=== PATIENT | female | born 1990 | race Caucasian/White ===

== ENCOUNTER 2020-02-18 13:13 | Outpatient (CLI) | payer OTHER, SELFPAY ==
--- NOTE | ~2020-02-18 | XR_ITS ---
XR ankle LT 2V DATE: 02/18/2020 13:40 INDICATION: Lateral ankle pain. No injury. TECHNIQUE: 2 views COMPARISON: None FINDINGS: There is mild soft tissue swelling of the ankle laterally. No fracture or dislocation of the ankle or disruption of the ankle mortise. No periosteal reaction or bone destruction. IMPRESSION: Mild lateral soft tissue swelling Reviewed, dictated and finalized at location A.
== END 2020-02-18 13:14 | disposition home or self-care (01) ==
LOC: ANHIMG 13:21
PROVIDERS: PCP Family Medicine; Visit Provider Physician Assistant
DX: M25.579 Pain in unspecified ankle and joints of unspecified foot (principal); M79.89 Other specified soft tissue disorders
CPT/HCPCS: 73600

== ENCOUNTER 2021-08-14 09:39 | Outpatient (CLI) | payer OTHER, SELFPAY ==
--- NOTE | ~2021-08-14 | US_ITS ---
EXAMINATION: US OB BPP wo non-stress EXAM DATE: 08/14/2021 14:13 INDICATION: Variable decelerations on FHR tracing man. 3rd trimester. TECHNIQUE: Pelvic obstetrical transabdominal sonogram was performed by a technologist. There are mu ltiple grayscale and Doppler images available for interpretation. There are no earlier studies of th is gestation for comparison. FINDINGS: There is a single fetus identified in breech presentation with a heart rate of 130 beats pe r minute. The placenta is located in the likely fundal position. There is no sonographic evidence of retroplacental hemorrhage identified. BIOPHYSICAL PROFILE (performed by the technologist) breathing (30 sec sustained breathing in 30 minutes): 6 out of 2 movement (3 gross body movements in 30 minutes): 2 out of 2 tone (one episode of istekdb-pokuarhlx-sytlzbm limb movement): 2 out of 2 Amniotic fluid pocket (2 cm): 2 out of 2 Total score: 6 out of 8 IMPRESSION: 1. Single fetus with heart rate of 130 bpm. 2. Normal biophysical profile score of 8 out of 8. Reviewed, dictated and finalized at location B.
[2021-08-14 10:24] VITALS: BP 121/75; PULSE 84
--- NOTE | 2021-08-14 10:43 | PM.IMHP ---
H&P: HPI History of Present Illness Date/Time: 08/14/21 10:43 Chief Complaint: Breech presentation intrauterine at term Narrative: 31 yo at 37w6d who presents for ECV for breech presentation. Pt was complicated by IUGR. Pt has been getting screening and getting serial growth scans. Last scan showed EFW of 25%. Pt denies any contractions, vaginal bleeding, leakage of fluid. Review of Systems Review of Systems: All systems reviewed & are unremarkable except as noted in HPI and below PMFSH Past Medical History Medical History (Updated 08/14/21 @ 10:51 by Cezar Spears MD) Migraine Family History Family History (Reviewed 11/12/20 @ 09:15 by Jesenia Sun [facility]) Unknown No problems noted. Social History Social History (Updated 11/12/20 @ 09:16 by Jesenia Sun [facility]) Smoking status: Never smoker Second hand tobacco smoke exposure: No Alcohol intake: never Substance use: never Substance use type: does not use Meds Home Medications and Allergies Home Medications Medication Instructions Recorded Confirmed Type prenat.vits,joselyn,[id number] 1 tablet PO DAILY 11/12/20 11/12/20 History Allergies Allergy/AdvReac Type Severity Reaction Status Date / Time No Known Allergies Allergy Verified 11/12/20 09:13 Vital Signs Vital Signs - 24 hr 08/14/21 10:24 Pulse Rate 84 Blood Pressure 121/75 Exam Const: General: cooperative Resp: Effort & Inspection: normal respiratory effort and able to speak in complete sentences Cardio: Rate: regular rate Rhythm: regular rhythm GI: Inspection: other (Gravid) GI Palp: No Tenderness to palpation present (GI) Assessment and Plan Assessment and plan (1) Supervision of high risk , unspecified, third trimester: Code(s): O09.93 - Supervision of high risk , unspecified, third trimester Status: Acute (2) Breech presentation: Code(s): O32.1XX0 - Maternal care for breech presentation, not applicable or unspecified Status: Acute Assessment and Plan: Pt has been breech for several weeks discussed ECV with patient risks, benefits, alternatives discussed BSUS performed, confirmed breech presentation fetus is breech with back to the maternal left. Will plan for forward roll in the counter-clockwise directions. Anterior placenta noted. No signs of nuchal cord noted. Amniotic fluid normal. will plan for fentanyl for pain control will dose terbutaline prior to ECV pt to have NST and extended monitoring after
[2021-08-14 10:59] VITALS: BP 115/71; PULSE 84
[2021-08-14] MEDS: TERBUTALINE SULFATE 1 MG/ML VIAL 0.25 MG SUB-Q (11:06)
[2021-08-14] MEDS: fentaNYL CITRATE INJ (*CRX) 100 MCG/2 ML VIAL 50 MCG IV PUSH (11:08)
--- NOTE | 2021-08-14 11:31 | P.OP_ITS ---
Procedure Note - Detailed Date of Procedure 08/14/21 Pre-op Diagnosis Breech presentation intrauterine at term Post-op Diagnosis Same Procedure Performed attempted ECV Surgeon Cezar Spears MD Anesthesia Other (IV fentanyl) Indications Breech presentation Findings BSUS confirmed breech presentation. spine to maternal left. Description of Procedure Bedside US was performed to confirm breech presentation. US showed fetus in breech presentation with spine to maternal left. Anterior placenta. Amniotic fluid within normal limits. NST reactive prior to going to OR. Pt was given one dose of terbutaline and IV fentanyl. BS US was repeated prior to attempting ECV. Suprapubic pressure was applied to displace the buttock from the pelvis. Pressure was then applied to the head in a counter- clockwise direction to facilitate a forward roll. The head was not able to be moved. US was repeated multiple times throughout the attempt to check FHT. FHT remained reassuring throughout the procedure. Multiple attempts were made at a forward roll without success. Attempt was then made to apply pressure to the head in a clockwise direction to attempt a backward roll. Again, the fetus was unable to be rotated. Pt reported a 7/10 for pain during the procedure. After several attempts, it was determined the ECV was unsuccessful. FHT were placed back on the monitor and noted to be reassuring. Estimated Blood Loss 0 Drains No Packing No Pathology None sent Complications No immediate complications Condition Stable Disposition Floor
[2021-08-14 11:34] LABS: HIV 1/2 Ab P24 Ag Result Negative (Negative)
== END 2021-08-14 14:35 | disposition home or self-care (01) ==
LOC: ANHOBOP 09:48 → ANHOBPP 09:48
PROVIDERS: PCP Family Medicine; Visit Provider Student in an Organized Health Care Education/Training Program
DX: O32.1XX0 Maternal care for breech presentation, not applicable or unspecified (principal); O09.93 Supervision of high risk pregnancy, unspecified, third trimester; Z3A.00 Weeks of gestation of pregnancy not specified
CPT/HCPCS: 36415; 59412; 76819; 86703; 96372; 96374; 99199; G0432; J3010; J3105

== ENCOUNTER 2021-08-17 17:21 | Outpatient (RCR) | payer OTHER, SELFPAY ==
[2021-08-17 17:53] VITALS: BP 114/63
== END 2021-09-21 08:17 | disposition home or self-care (01) ==
LOC: ANHOBOP 17:21
PROVIDERS: PCP Family Medicine; Visit Provider Student in an Organized Health Care Education/Training Program
DX: O36.8190 Decreased fetal movements, unspecified trimester, not applicable or unspecified (principal); Z3A.00 Weeks of gestation of pregnancy not specified
CPT/HCPCS: 59025

== ENCOUNTER 2021-08-22 10:11 | Outpatient (CLI) | payer OTHER, SELFPAY ==
[2021-08-22 11:02] LABS: Hematocrit 37.5 % (37.0-47.0); Hemoglobin 12.5 g/dL (12.0-15.0); Mean Corpuscular HGB Conc 33.3 g/dl (32-36); Mean Corpuscular Volume 95.9 fl (80-100); Mean Platelet Volume 10.2 fl (7.4-10.4); Platelet Count Result 296 k/mm3 (150-375); Red Blood Count 3.91 M/mm3 (4.2-5.4); Red Cell Distribution Width 14.1 % (11.5-14.5); White Blood Count 11.7 K/mm3 (4.5-10.0)
[2021-08-24 07:50] LABS: Rapid Plasma Reagin Non-Reactive (NonReactive)
== END 2021-08-22 10:12 | disposition home or self-care (01) ==
LOC: ANHLAB 10:13
PROVIDERS: PCP Family Medicine; Visit Provider Student in an Organized Health Care Education/Training Program
DX: Z34.93 Encounter for supervision of normal pregnancy, unspecified, third trimester (principal); Z3A.00 Weeks of gestation of pregnancy not specified
CPT/HCPCS: 36415; 85027; 86592; 86850; 86900; 86901

== ENCOUNTER 2021-08-24 06:39 | Inpatient (IN) | payer OTHER, SELFPAY ==
[2021-08-24] VITALS (60 sets, daily range): BP systolic 83–131; BP diastolic 46–112; PULSE 27–83; RESP 13–18; TEMP 35.7–36.9; O2SAT 83–100; BMI 30.4
[2021-08-24] MEDS: LACTATED RINGERS 1,000 ML 125 ML IV CONT (07:20)
--- NOTE | 2021-08-24 07:45 | PM.IMHP ---
H&P: HPI History of Present Illness Date/Time: 08/24/21 07:45 Chief Complaint: Intrauterine at term breech presentation Narrative: 31 yo G1 at 39w2d who presents for primary delivery for breech presentation. Fetus has been in breech presentation since June. ECV was attempted and was unsuccessful. Pt was complicated by IUGR which had resolved at last growth scan. Review of Systems Cardiovascular: Cardiovascular: Denies chest pain, Denies leg edema, Denies palpitations, Denies dyspnea and Denies dyspnea on exertion Respiratory: Respiratory: Denies cough, Denies dyspnea and Denies dyspnea on exertion Gastrointestinal: Gastrointestinal: Denies abdominal pain, Denies constipation, Denies diarrhea, Denies nausea and Denies vomiting Genitourinary: Genitourinary: Denies hematuria, Denies urinary frequency, Denies dysuria, Denies pelvic pain, Denies urinary incontinence and Denies vaginal discharge Neurologic: Reports system reviewed and no additional complaints, except as documented Psychiatric: Psychiatric: Reports no additional psychiatric complaints Endocrine: Endocrine: Denies palpitations PMFSH Past Medical History Medical History (Updated 08/14/21 @ 10:51 by Cezar Spears MD) Migraine Family History Family History (Updated 08/15/21 @ 15:22 by Rebecca Starkey RN) Unknown No problems noted. Other No pertinent family history Social History Social History (Updated 11/12/20 @ 09:16 by Jesenia Sun CMA) Smoking status: Never smoker Second hand tobacco smoke exposure: No Alcohol intake: never Substance use: never Substance use type: does not use Spiritual care concerns: No Meds Home Medications and Allergies Home Medications Medication Instructions Recorded Confirmed Type prenat.vits,joselyn,vcd-ncmz-syoeq 1 tablet PO DAILY 11/12/20 08/24/21 History aspirin 81 mg PO DAILY 08/14/21 08/24/21 History calcium carbonate-vitamin D3 1 tablet PO DAILY 08/14/21 08/24/21 History [Calcium + D] omega-3 fatty acids [Fish Oil] 1,500 mg PO DAILY 08/14/21 08/24/21 History Allergies Allergy/AdvReac Type Severity Reaction Status Date / Time No Known Allergies Allergy Verified 11/12/20 09:13 Vital Signs Vital Signs - 24 hr 08/24/21 07:34 08/24/21 07:45 Pulse Rate 78 74 Blood Pressure 107/67 105/72 Exam Const: General: no acute distress Eyes: EOM: EOMs intact bilaterally Neck: Neck: supple Thyroid: thyroid normal Chest: Breast/axilla inspection: normal inspection of the breasts Breast/axilla palpation: normal palpation of the breasts, normal palpation of the axillae and no axillary lymphadenopathy Resp: Effort & Inspection: normal respiratory effort Auscultation: clear to auscultation bilaterally Cardio: Rate: regular rate Rhythm: regular rhythm GI: Inspection: non-distended and other (Gravid) GI Palp: Yes Soft to palpation, No Tenderness to palpation present (GI) and No Guarding due to palpation present (GI) Auscultation: normal bowel sounds : Speculum Exam - Vagina: No vaginal bleeding OB/external & speculum: external exam normal; No vaginal bleeding Skin: General skin exam: normal color and no rashes or lesions noted Neuro: Cognition (Neuro): normal cognition Speech: normal speech Extrem: General: normal to inspection Psych: Mental Status: mental status grossly normal Affect: normal affect Assessment and Plan Assessment and plan (1) Breech presentation: Code(s): O32.1XX0 - Maternal care for breech presentation, not applicable or unspecified Status: Acute Assessment and Plan: fetus in pati breech position since June failed prior ECV pt elects for primary (2) Supervision of high risk , unspecified, third trimester: Code(s): O09.93 - Supervision of high risk , unspecified, third trimester Status: Acute Assessment and Plan: 31 yo G1 at
--- NOTE | 2021-08-24 07:49 | WPDHPUPDATE1 ---
History and Physical Update Update Date/Time: 08/24/21 07:49 History and Physical has been reviewed, including an updated exam of the patient. There are NO changes in the patient's condition. Risks, benefits, and alternatives have been discussed and questions answered. Patient agrees to proceed with procedure.
--- NOTE | 2021-08-24 07:54 | LDADM ---
This patient, Zo Rucker, was admitted to Labor/Delivery/Recovery 119 on 08/24/21 at 06:39. Plans for labor, pain management and were discussed with patient. Patient/family oriented to hospital policies and general routines including ID bracelet, bed and alarms, visiting hours, pain management, procedures, bathroom and other care routines, personal items, smoking policy, room service/diet and guest tray routines, security routines, and visiting hours. Patient/Family are encouraged to report perceived risks to care and to ask questions if they do not understand what they are told or what they should do. See OBIX for further documentation.
--- NOTE | 2021-08-24 07:57 | WPDANESEPPF ---
Anes - Initial Pre Proc Eval Procedure: Operation Date: 08/24/21 09:00 Proposed Procedures p Section - Cezar Spears MD Date/Time: 08/24/21 07:57 Surgeon: Cezar Spears MD Pre Op Diagnosis: C/S Patient Data Age: 31 Gender: F Height: 1.65 m Weight: 83 kg Last Vital Signs Temp 36.9 C 08/24/21 07:45 Pulse 74 08/24/21 07:45 BP 105/72 08/24/21 07:45 Allergies Allergy/AdvReac Type Severity Reaction Status Date / Time No Known Allergies Allergy Verified 11/12/20 09:13 Home Medications Medication Instructions Recorded Confirmed Type prenat.vits,joselyn,llm-mlts-chnay 1 tablet PO DAILY 11/12/20 08/24/21 History aspirin 81 mg PO DAILY 08/14/21 08/24/21 History calcium carbonate-vitamin D3 1 tablet PO DAILY 08/14/21 08/24/21 History [Calcium + D] omega-3 fatty acids [Fish Oil] 1,500 mg PO DAILY 08/14/21 08/24/21 History Patient hx anesthesia problems: none Family hx anesthesia problems: none Results Review: All pre-operative results and documents have been reviewed as part of the pre-operative evaluation. [facility] Past Medical History Medical History Migraine Family History Family History (Updated 08/15/21 @ 15:22 by Rebecca Starkey RN) Unknown No problems noted. Other No pertinent family history Social History Social History Smoking status: Never smoker Second hand tobacco smoke exposure: No Alcohol intake: never Substance use: never Substance use type: does not use Spiritual care concerns: No Anes - Eval Final PreProcedure Day of Procedure 08/24/21 07:57 Patient weight: overweight Heart: regular rate and rhythm Lungs: clear to auscultation Airway: Mallampati scale class II Neurological: alert and oriented Last oral intake: >/= 8 hours Emergent: no Anesthetic plan: proceed Anesthesia type and monitoring: regional spinal and standard monitoring Results Review: All pre-operative results and documents have been reviewed as part of the pre-operative evaluation. Informed Consent: The patient's anesthetic plan and its attendant risks and benefits were discussed with the patient/family/POA. Questions were solicited and answers provided to the satisfaction of the patient/family/POA.
[2021-08-24] MEDS: LACTATED RINGERS 1,000 ML 999 ML IV CONT (08:17)
--- NOTE | 2021-08-24 09:24 | W.PM.PROC2 ---
Procedure Note - Detailed Date of Procedure 08/24/21 Pre-op Diagnosis breech presentation C/S Post-op Diagnosis Same Procedure Performed low transverse section Surgeon Cezar Spears MD Anesthesia Spinal and Epidural Indications breech presentation Description of Procedure The patient was taken to the operating room. A combined spinal epidural anesthesic was administered and found to be adequate at a t-10 level. The patient was placed in a supine position with a slight left lateral tilt. A edwards catheter was placed with return of clear urine. A Bovie grounding pad was placed. Surgical prep was performed and surgical drapes were placed. A surgical time out was performed. A Pfannenstiel skin incision was then made with the scalpel and carried through to the underlying layer of fascia. The fascia was then incised in the midline and the incision was extended laterally with the Littlejohn scissors. The superior aspect of the fascia was then grasped with the Yuliya clamps, elevated, and the underlying rectus muscles dissected off bluntly and sharply. Attention was then turned to the inferior aspect of this incision which, in a similar fashion, was grasped, tented up with the Yuliya clamps, and the rectus muscles dissected off both bluntly and sharply. The rectus muscles were then in the midline. The peritoneum was identified and entered bluntly. The peritoneal incision was then extended superiorly and inferiorly with good visualization of the bladder. The vesico-uterine serosa was identified and dissected to create a bladder flap. The bladder blade was reinserted. The uterus was inspected for rotation. A low-transverse uterine incision was made sharply with the scalpel and entry was made into the uterine cavity. An amniotomy was made and copious amounts of clear fluid were noted on return. The uterine incision was extended laterally bluntly. The bladder blade was removed. The buttocks was noted at the hysterotomy with spine anterior. The buttocks was delivered through the hysterotomy. The abdomen was wrapped in a blue towel and gentle traction was applied to deliver the fetus to the sternum. The fetus was then rotated to allow delivery of the right extremity by gently sweeping across the face and upper chest. Similar procedure was performed to deliver the left extremity. The head was then flexed and delivered through the hysterotomy with gentle traction. The nose and mouth were suctioned with a bulb syringe. The umbilical cord was clamped twice and cut. The was handed off to the waiting staff. A second segment of umbilical cord was clamped and cut for cord blood gasses. Cord blood was collected for determination of the blood type and for direct Estevez. The placenta was delivered spontaneously without difficulty. The placenta appeared grossly normal and complete. The uterus was exteriorized and cleared of all clots and debris. The uterine incision was repaired using 0-monocryl suture in a running fashion. A second layer of 0 Monocryl suture was used in an imbricating fashion to obtain excellent hemostasis and uterine strength. The uterine closure was inspected for hemostasis. The posterior aspect of the uterus and the broad ligaments were inspected and the posterior cul-de-sac cleared of fluid and blood clots. The uterine closure was again inspected and found to be hemostatic. The uterus was returned to the abdominal cavity. The pericolic gutters were inspected and were cleared of all blood clots and debris. The uterine closure was then re inspected to ensure hemostasis as were all subfascial tissues. The peritoneum was closed using 3-0 vicryl in a running fashion. The fascia was reapproximated with 0-vicryl in a running fashion. The subcutaneous tissue was irrigated and hemostasis achieved with electrocautery. It was reapproximated with 3-0 vicryl in a running fashion. The skin was closed with 4-0 vicryl in a
--- NOTE | 2021-08-24 09:26 | P.PCNOB_ITS ---
OB - Delivery Note Procedure Delivery date: 08/24/21 Procedure: Procedures Operation Date: 08/24/21 09:00 Actual Procedure Side Surgeon p Section Cezar Spears MD Events: Breech Presentation Induction method: None Delivery monitor: External FHT Route of delivery: Prior to decision for section, [facility] labor guidelines were considered and discussed with the patient and staff. Decision made to proceed with the section.: Yes Laceration Description: None Quantitative Blood Loss (ml): 395 Anesthesia type: Epidural Disposition: Floor Complications: breech presentation Baby Date of : 08/24/21 Time of : 08:47 Weeks of gestation at delivery: 39 Infant gender: Female Weight (pounds): 6 Weight (ounces): 10 presentation: breech Placenta delivery description: Manual Removal Cord Vessel Description: 3 Vessels score one minute: 8 score five minutes: 9
[2021-08-24] MEDS: OXYTOCIN 30 UNITS/NS 500 ML 30 UNITS/500 ML BAG 125 UNITS IV CONT (09:31)
[2021-08-24] MEDS: ceFAZolin 2 GM/D5W 50 ML 2 GM/50 ML BAG IVPB (09:45)
[2021-08-24] MEDS: KETOROLAC 30 MG/ML VIAL (*BKC) IV PUSH (11:00)
--- NOTE | 2021-08-24 11:45 | PC.NURSE ---
Patient transferred to post room #290 per stretcher from labor and delivery. Support person present. Oriented to unit, room, information board, rooming in, admission packet and security measures. Patient verbalizes understanding.
[2021-08-24] MEDS: DEXTROSE 5%/0.45% SOD CHL 1,000 ML 125 ML IV CONT (14:17)
--- NOTE | 2021-08-24 14:23 | PC.NURSE ---
1230 - 1245 Introductions were made, then consulted with patient to assess needs related to . Mother led the conversation with her experience feeding her infant so far. Mother works well with her with encouragement. Encouraged understanding of the benefits of skin to skin (unwrapping infant and placing vertically on her chest), responsive feeding and how to watch for early feeding signs, frequency of feeding on demand about every 8-12 times in 24 hours (every 2-3 hours), milk production, duration of feeding, signs of adequate intake/output and how to record on the feeding sheet. Reviewed positioning and ear, shoulder, hip alignment, supporting the breast, asymmetrical latch (off-center), and leading with the chin with a big open side gape. Infant latched optimally to the right breast in football position. Education given to mother of how to visualize suck/swallow ratios and drinking at the breast. Infant was able to maintain latch without discomfort to mother. Nipple care reviewed with optimal latch and good positioning. Reminding mother of comfort measures of healing with a warm and wet washcloth to rinse breast, then leave open to air-dry as needed. Reviewed good handwashing when or touching the breast/nipples to prevent infection. Resources used to facilitate learning were used with the mom and baby guide. Mother voiced understanding of responsive feedings, stimulating with skin to skin, hand expressed colostrum, touch, talking to to encourage if it has been 2 -3 hours since the start of the last , to call if does not latch or there is discomfort with . Reported to the primary RN.
[2021-08-24] MEDS: DOCUSATE SODIUM 100 MG CAPSULE PO (20:59)
[2021-08-24] MEDS: IBUPROFEN 600 MG TABLET PO (20:59)
[2021-08-24] MEDS: HYDROcodone/acetaminophen (*CRX) 5-325 MG TABLET 1 TAB PO (21:00)
[2021-08-25 00:21] VITALS: PULSE 65; RESP 16; O2SAT 99
[2021-08-25] MEDS: IBUPROFEN 600 MG TABLET PO ×3 (04:31→22:04)
[2021-08-25] MEDS: HYDROcodone/acetaminophen (*CRX) 5-325 MG TABLET 1 TAB PO ×4 (04:32→22:04)
[2021-08-25 04:40] VITALS: BP 119/69; PULSE 80; RESP 16; TEMP 36.8; O2SAT 100
[2021-08-25 06:01] LABS: Basophils Percent Auto 0.3 % (0.2-1.2); Eosinophils Absolute Auto 0.1 K/mm3 (0-0.3); Eosinophils Percent Auto 0.8 % (0-4.4); Hematocrit 34.8 % (37.0-47.0); Hemoglobin 11.5 g/dL (12.0-15.0); Immature Granulocyte Absolute 0.05 K/mm3 (0.00-0.031); Immature Granulocyte Percent A 0.4 % (0-0.5); Lymphocytes Absolute Auto 1.76 K/mm3 (0.9-3.2); Lymphocytes Percent Auto 14.8 % (18.3-44.2); Mean Corpuscular Hemoglobin 32.5 pg (26-34); Mean Corpuscular Volume 98.3 fl (80-100); Mean Platelet Volume 10.7 fl (7.4-10.4); Monocytes Absolute Auto 0.7 K/mm3 (0.1-0.6); Neutrophils Absolute Auto 9.3 K/mm3 (1.3-6.7); Neutrophils Percent Auto 77.7 % (45.5-73.1); Platelet Count Result 249 k/mm3 (150-375); Red Blood Count 3.54 M/mm3 (4.2-5.4); White Blood Count 11.9 K/mm3 (4.5-10.0)
--- NOTE | 2021-08-25 07:41 | PM.OBPNVD ---
OB - PN: Subj Subjective Date/time seen: 08/25/21 07:41 Patient comments: no complaints, pain well controlled, tolerating diet and flatus present [place] baby status: doing well OB - PN: Obj Data Labs CBC & Chem 7: 08/25/21 04:29 Labs: Laboratory Results - last 24 hr 08/25/21 04:29 WBC 11.9 H RBC 3.54 L Hgb 11.5 L Hct 34.8 L MCV 98.3 MCH 32.5 MCHC 33.0 RDW 14.0 Plt Count 249 MPV 10.7 H Immature Gran % (Auto) 0.4 Neut % (Auto) 77.7 H Lymph % (Auto) 14.8 L [place] % (Auto) 6.0 Eos % (Auto) 0.8 Baso % (Auto) 0.3 Lymph # (Auto) 1.76 [place] # (Auto) 0.7 H Eos # (Auto) 0.1 Baso # (Auto) 0.0 Abs Immat Gran (auto) 0.05 H Absolute Neuts (auto) 9.3 H Absolute Nucleated RBC 0.0 Nucleated RBC % 0.0 OB - PN A/P Plan day: 1 Plan: routine care Comments: patient doing well H/H stable afebrile, VSS incision C/D/I edwards removed, voiding spontaneously continue routine post op care Time Spent With Patient Time: Total time spent is greater than 50% in coordination of care (as documented) at patient's floor/unit and/or counseling patient: Time with patient: less than 15 minutes Review of Systems Constitutional: Constitutional: Reports no additional constitutional complaints Cardiovascular: Cardiovascular: Reports no additional cardiovascular complaints Respiratory: Respiratory: Reports no additional respiratory complaints Gastrointestinal: Gastrointestinal: Reports no additional gastrointestinal complaints Genitourinary: Genitourinary: Reports no additional female genitourinary complaints Exam Const: General: comfortable and no acute distress Resp: Effort & Inspection: normal respiratory effort Auscultation: clear to auscultation bilaterally Cardio: Rate: regular rate GI: GI Palp: Yes Soft to palpation, Yes Tenderness to palpation present (GI) (around incision ) and No Guarding due to palpation present (GI) Auscultation: normal bowel sounds Other: incision C/D/I, covered with Dermabond Psych: Appearance: grossly normal Mental Status: mental status grossly normal Affect: normal affect
--- NOTE | 2021-08-25 07:41 | PM.OBDSVD ---
DS: Admitting Diagnosis Discharge Date 08/26/21 Admitting Diagnosis intrauterine at term breech presentation OB - DS: Summary OB Procedures : None OB Procedures Intrapartum: OB Procedures: : None Peripartum Data Delivery Method: Section Procedures: Procedures Operation Date: 08/24/21 09:00 Actual Procedure Side Surgeon p Section Cezar Spears MD complications: none Status at Discharge Functional status at discharge: independent ambulation Overall status at discharge: patient is progressing back to baseline Time Spent with Patient Time attestation: Total time spent providing and/or coordinating discharge services: Time spent: Less than 30 minutes Exam Const: General: comfortable and no acute distress Resp: Effort & Inspection: normal respiratory effort Auscultation: clear to auscultation bilaterally Cardio: Rate: regular rate GI: Inspection: non-distended GI Palp: Yes Soft to palpation, No Firmness to palpation present (GI), Yes Tenderness to palpation present (GI) (mild tenderness over incision ) and No Guarding due to palpation present (GI) Auscultation: normal bowel sounds Psych: Appearance: grossly normal Mental Status: mental status grossly normal DS: Data Data Completed and Pending Labs on day of discharge: Labs from last 24 hours 08/25/21 04:29 WBC 11.9 H RBC 3.54 L Hgb 11.5 L Hct 34.8 L MCV 98.3 MCH 32.5 MCHC 33.0 RDW 14.0 Plt Count 249 MPV 10.7 H Immature Gran % (Auto) 0.4 Neut % (Auto) 77.7 H Lymph % (Auto) 14.8 L [place]on % (Auto) 6.0 Eos % (Auto) 0.8 Baso % (Auto) 0.3 Lymph # (Auto) 1.76 [place] # (Auto) 0.7 H Eos # (Auto) 0.1 Baso # (Auto) 0.0 Abs Immat Gran (auto) 0.05 H Absolute Neuts (auto) 9.3 H Absolute Nucleated RBC 0.0 Nucleated RBC % 0.0 Discharge Plan Discharge Attending physician on discharge: Cezar Spears Discharging Clinician: Cezar Spears Patient Disposition: Home, Self-Care Activity: as tolerated and pelvic rest Diet: regular Discharge Instructions: Education: Mom and Baby Guide Given to: Mother Follow-Up: Call your delivering provider's office for an appointment to be seen in: 1 and 4 Weeks Mom and baby should come to the [facility] for the follow-up appointment. Appointment Date/Time: August at 10:00 am What to expect at your follow-up visit: Physical Assessment Call [phone] if you are unable to keep your appointment time. BREAST CARE: * Wear a snug supportive bra. * For engorgement discomfort: Breast Feeding: * Apply warm moist washcloths * Express milk as needed to relieve engorgement * Wear loose clothing * For sore nipples: * Identify correct latch-on * Apply warm moist washcloths before and after nursing * Air dry nipples after nursing * May apply Lansinoh cream to nipples ABDOMINAL INCISION: (if applicable) * Allow incision to air dry * Do NOT use lotions for powders on your incision * When showering, allow soap and water to run over the incision, but do not wash incision PERINEAL CARE: * Until bleeding stops, use your katya bottle after urinating * Change your pad frequently throughout the day * You may take sitz baths several times a day (fill your bathtub with warm water and soak for 20 minutes.) Do NOT bathe in the water * No tub baths until seen by your physician - You may shower ACTIVITY: * Rest as much as possible. * Do not exercise or lift anything heavier than your baby (such as laundry or other children.) * Avoid stairs or driving as much as possible. * Do not put anything into the vagina. No douching, tampons, or sexual activity until seen by physician. NOTIFY PHYSICIAN IF YOU HAVE ANY QUESTIONS OR IF ANY OF THE FOLLOWING SYMPTOMS OCCUR: * If your episi
[2021-08-25 07:50] VITALS: BP 110/70; PULSE 72; RESP 18; TEMP 36.4; O2SAT 99
--- NOTE | 2021-08-25 08:29 | PC.NURSE ---
[id number] Consulted with patient to assess needs related to . Mother led conversation with her experience with feeding baby so far. Mother works well with her infant with encouragement. Reviewed working with , breast, nipples and how to protect the nipples with an optimal deep latch, good positioning, and good hand washing. Encouraged understanding the benefits of skin to skin, responding to feeding cues, frequencies of feeding 8-12 times in 24 hours (approximately 2-3 hours), duration of feedings, milk production, intake/output feeding sheet and signs of adequate intake encouraging swallowing at the breast. Reviewed positioning and alignment, supporting breast, off-centered (asymmetrical latch) and leading with the chin with big open wide gape. latched optimally to the right breast in football position. Education given to mother of how to visualize suck/swallow ratios and drinking at the breast. Infant was able to maintain latch without discomfort to mother. Nipple care reviewed with optimal latch, good positioning and to have clean hands when touching the nipple/breast. Resources used to facilitate learning were used from the mom and baby guide. Mother voiced understanding of the education shared, calling for assistance if the infant does not latch or if there is discomfort with . Reported to the primary RN.
[2021-08-25] MEDS: MULTIVIT/MIN/PREN/FOL AC/IRON TABLET 1 TAB PO (09:13)
[2021-08-25] MEDS: DOCUSATE SODIUM 100 MG CAPSULE PO ×2 (09:13→16:55)
--- NOTE | 2021-08-25 10:13 | WPDANLDPN2 ---
Anes-Prog Note L&D Date/Time: 08/25/21 10:13 Comfortable throughout: section Neuraxial method: spinal Epidural/Spinal procedure site: clean & non-tender Neuro status: Neuro function grossly intact. Cardiovascular status: normal Respiratory status: normal Airway patency: baseline Mental status: baseline Post-Op hydration status: normal Vital Signs: Last Vital Signs Temp 36.4 C L 08/25/21 07:50 Pulse 72 08/25/21 07:50 Resp 18 08/25/21 07:50 BP 110/70 08/25/21 07:50 Pulse Ox 99 08/25/21 07:50 Pain score (VAS): 2 I/O: Intake & Output 08/24/21 08/25/21 08/25/21 23:59 07:59 15:59 Intake Total 2842 500 Output Total 3225 900 400 Balance -383 -400 -400 Post-procedural complaints: none Patient feedback: Patient satisfied with anesthetic care.
--- NOTE | 2021-08-25 10:14 | WPDANLDNPN2 ---
Anes-Prog Note L&D-Neuraxial Date/Time: 08/25/21 10:14 Neuraxial medications: intrathecal PF morphine Opiod-related complaints: none Patient feedback: Patient satisfied with post-operative pain management.
[2021-08-25 19:35] VITALS: BP 136/87; PULSE 86; RESP 16; TEMP 36.8; O2SAT 98
[2021-08-26] MEDS: HYDROcodone/acetaminophen (*CRX) 5-325 MG TABLET 1 TAB PO ×4 (02:03→14:26)
[2021-08-26] MEDS: MULTIVIT/MIN/PREN/FOL AC/IRON TABLET 1 TAB PO (08:08)
[2021-08-26] MEDS: DOCUSATE SODIUM 100 MG CAPSULE PO (08:08)
[2021-08-26] MEDS: IBUPROFEN 600 MG TABLET PO ×2 (08:08→14:25)
[2021-08-26 08:35] VITALS: BP 113/61; PULSE 77; RESP 18; TEMP 36.9; O2SAT 99
--- NOTE | 2021-08-26 11:11 | PC.NURSE ---
[id number] Mother led the conversation with her experience and plan to feed her so far and her ability to [independently latch infant optimally without discomfort/ continue with the plan of attempting to breastfeed/pump/supplement to feed ]. Reminded parents to use good handwashing technique to prevent infection. Mother is feeding appropriately for growth of infant and understands stimulating infant to eat if needed. has had appropriate feedings in the last 24 hours meets the outcomes for weight, output and jaundice at this time. Mother states she is confident to continue effectively her at home or when to call for assistance and denies any additional assistance or education at this time. Reinforced understanding of milk production, transition of milk, signs of adequate intake, prevention/relief of engorgement, responsive after visualizing feeding cues, the different methods of stimulating to breastfeed 2-3 hours after the start of the last feeding, community resources, medication information reviewed per [employer] and when to call a provider using the resource of the mom and baby guide/[facility] website. latched optimally to the left breast in cross cradle position. Swallowing heard and visualized. Mother denies any discomfort with . Mother voiced understanding of the education shared. Reported to the primary RN.
--- NOTE | 2021-08-26 12:24 | PM.OBPNVD ---
OB - PN: Subj Subjective Date/time seen: 08/26/21 12:24 Narrative: Pain OK. Tolerating diet. Would like to go home. OB - PN: Obj Data Labs CBC & Chem 7: 08/25/21 04:29 OB - PN A/P Plan Comments: A: POD#2, doing well. P: Home to f/u 4 weeks. Exam Narrative: AVSS ABD soft, nontender, fundus firm. Incision c/d/i. EXT nontender
--- NOTE | 2021-08-26 18:19 | PC.NURSE ---
1200 Patient viewed the discharge video Mother & Baby Care, The First Two Weeks . Patient was given the opportunity and encouraged to ask questions. Patient verbalized understanding of information shared and has been given the mother/baby guide for home reference.
== END 2021-08-26 15:10 | disposition home or self-care (01) | DRG 788 ==
LOC: ANHOB2 08-26 12:58 → ANHLDR 08-27 10:24 → ANHOB2 08-27 10:24
PROVIDERS: Admitting Provider Student in an Organized Health Care Education/Training Program; PCP Family Medicine; Visit Provider Obstetrics & Gynecology
PROC: 10D00Z1 Extraction of Products of Conception, Low, Open Approach (ICD-10-PCS; CPT 59514; principal; 2021-08-24 09:00)
DX: O32.1XX0 Maternal care for breech presentation, not applicable or unspecified (principal); Z37.0 Single live birth; Z3A.39 39 weeks gestation of pregnancy
CPT/HCPCS: 36415; 85025; 85027; 86592; 86850; 86900; 86901; A9270; J0131; J0690; J1885; J2274; J2590; J7120

== ENCOUNTER 2022-03-19 16:43 | Outpatient (CLI) | payer OTHER, SELFPAY ==
[2022-03-19 18:34] LABS: Free T4 Free Thyroxine 0.81 ng/mL (0.78-2.19)
== END 2022-03-19 16:44 | disposition home or self-care (01) ==
PROVIDERS: PCP Family Medicine
DX: L81.8 Other specified disorders of pigmentation (principal)
CPT/HCPCS: 36415; 82380; 84439; 84443

== ENCOUNTER 2024-12-13 13:41 | Outpatient (CLI) | payer OTHER, SELFPAY ==
--- OUTSIDE RECORDS SUMMARY | 2024-12-13 13:49 | XMS_ITS | Clinical Summary ---
Author Organization [facility] Address [address] [place] [address] Care Team Providers Care Prototype Engineer Manager Name Role Phone Unavailable Primary Care Provider Unavailabl e Source Comments [facility],non-owned Affiliates and Associated Physician Practices is amultiple site organization consisting of ambulatory clinics and hospital sitesin [place], [place] and [place]. This disclosure is being madepursuant to the Care Everywhere program and may not contain all information available regarding this patient. 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 Supervision of high-risk of young prim igravida 04/14/2021 Resolved Problems Problem Noted Date Diagnosed Date Resolved Date 30 weeks gestation of 06/22/2021 07/01/2021 27 weeks gestation of 05/15/2021 06/22/2021 SGA (small for gestational age) 04/15/2021 07/01/2021 Social History Tobacco Use Types Packs/Day Years Used Date Smoking Tobacco: Never Assessed Comments No Sex and Gender Information Value Date Recorded Sex Assigned at Not on file Legal Sex Female 9:51 AM BREEDING MANAGER Gender Identity Not on file Sexual Orientation Not on file Last Filed Vital Signs Vital Sign Reading Time Taken Comments Blood Pressure 117/73 08/14/2021 8:38 AM CDT Pulse 80 08/14/2021 8:38 AM CDT Temperature - - Respiratory Rate - - Oxygen Saturation - - Inhaled Oxygen Concentration - - Weight - - Height - - Body Mass Index - - Plan of Treatment Health Maintenance Due Date Last Done Comments HIV SCREENING 2006 HEPATITIS C SCREENING 04/07/2009 DTAP/TDAP/TD VACCINES (1 - Tdap) 2010 HEPATITIS B VACCINE (1 of 3 - 19+ 3-dose series) 2010 HPV VACCINE (1 - 3-dose SCDM series) 2018 COVID-19 VACCINE (1 - 2023-2 5 season) 2024 DEPRESSION SCREENING 05/16/2024 INFLUENZA VACCINE (#1) 2025 03/03/2022 ZOSTER VACCINE (1 of 2) 2041 HIB VACCINE Aged Out No longer eligi ble based on patient's age to complete this topic MENINGOCOCCAL (Group B) VACC INE SHARED DECISION-MAKING Aged Out No longer eligibl e based on patient's age to complete this topic MENINGOCOCCAL GROUPS A/C/Y/W VACCINE Aged Out No longer eligible b ased on patient's age to complete this topic PNEUMOCOCCAL VACCINE Aged Out No long er eligible based on patient's age to complete this topic Insurance * Guarantor: Zo Rucker Account Type Relation to Patient Date of Phone Billing Address Personal/Family Self 1990 [address]
[2024-12-13 14:55] LABS: Hematocrit 36.1 % (37.0-47.0); Hemoglobin 12.1 g/dL (12.0-15.0); Mean Corpuscular HGB Conc 33.5 g/dl (32-36); Mean Corpuscular Hemoglobin 32.2 pg (26-34); Mean Corpuscular Volume 96.0 fl (80-100); Platelet Count Result 265 k/mm3 (150-375); Red Blood Count 3.76 M/mm3 (4.2-5.4); White Blood Count 10.3 K/mm3 (4.5-10.0)
[2024-12-13 16:41] LABS: Syphilis IgG/IgM Antibody Non-Reactive (Nonreactive)
== END 2024-12-13 13:42 | disposition home or self-care (01) ==
PROVIDERS: PCP Family Medicine; Visit Provider Obstetrics & Gynecology
DX: Z34.93 Encounter for supervision of normal pregnancy, unspecified, third trimester (principal); Z3A.00 Weeks of gestation of pregnancy not specified
CPT/HCPCS: 36415; 85027; 86593; 86850; 86900; 86901

== ENCOUNTER 2024-12-14 05:24 | Inpatient (IN) | payer OTHER, SELFPAY ==
--- NOTE | 2024-12-12 06:55 | P.HP_ITS ---
H&P: HPI History of Present Illness Date/Time: 12/12/24 06:55 Chief Complaint: Term with previous section Narrative: This is a 34-year-old 2 para 1 whose last menstrual period is 03/04/2025 admitted for repeat low-transverse section. Her has been relatively uncomplicated. She declined attempt at trial of labor after . Initially the placenta was noted to be low lying but that resolved. She is negative for group B strep Review of Systems Constitutional: Constitutional: Reports no additional constitutional complaints Cardiovascular: Cardiovascular: Reports no additional cardiovascular complain ts Respiratory: Respiratory: Reports no additional respiratory complaints Gastrointestinal: Gastrointestinal: Reports no additional gastrointestinal complaints Genitourinary: Genitourinary: Reports no additional female genitourinary compl aints [facility] Past Medical History Medical History Yellow skin Migraine Family History Family History Unknown No problems noted. Other No pertinent family history Social History Social History Smoking status: Never smoker Second hand tobacco smoke exposure: No Alcohol intake: never Substance use: never Substance use type: does not use Spiritual care concerns: No Meds Home Medications and Allergies Home Medications ?Medication ?Instructions ?Recorded ?Confirmed ?Type prenat.vits,joselyn,fev-bvna-xaqqa 1 tablet PO DAILY 11/12/20 11/19/24 History Allergies Allergy/AdvReac Type Severity Reaction Status Date / Time No Known Allergies Allergy Verified 11/28/24 08:28 Exam Const: General: cooperative, healthy appearing and comfortable Nutritional Appearance: overweight Orientation/consciousness: oriented to person, oriented to place and oriented to time HENMT: Head: normal to inspection Resp: Effort & Inspection: normal respiratory effort Cardio: Rate: regular rate Rhythm: regular rhythm Heart sounds: S1 normal heart sound present and S2 normal heart sound present GI: Inspection: normal to inspection (Gravid soft uterus) Assessment and Plan Assessment and plan (1) Term : Code(s): Z34.90 - Encounter for supervision of normal , unspecified, unspecified trimester Status: Acute (2) Previous section: Code(s): Z98.891 - History of uterine scar from previous surgery Status: Acute Plan Proceed with repeat low-transverse section
[2024-12-14] VITALS (68 sets, daily range): BP systolic 95–120; BP diastolic 52–82; PULSE 53–212; RESP 16–18; TEMP 36.2–36.6; O2SAT 95–100; BMI 33.0
--- OUTSIDE RECORDS SUMMARY | 2024-12-14 05:32 | XMS_ITS | Clinical Summary ---
Author Organization [facility] Address [address] [place] [address] Care Team Providers Care Party Plan Sales Unit Sales Leader Name Role Phone New Referring, Provider Primary Care Provider Un available Allergies No known active allergies Medications SPRINTEC 28 0.25-35 MG-MCG tablet Take 1 tablet by mouth daily. 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 Left foot pain 04/07/2016 Social History Tobacco Use Types Packs/Day Years Used Date Smoking Tobacco: Never Smokeless Tobacco: Never Alcohol Use Standard Drinks/Week Comments No 0 (1 standard drink = 0.6 oz pur e alcohol) AUDIT-C Answer Date Recorded Frequency of Alcohol Consumption Never 04/04/2018 Average Number of Drinks Not on file 018 Frequency of Binge Drinking Not on file 03/17 Comments Unknown Sex and Gender Information Value Date Recorded Sex Assigned at Female 03/27/2018 11:04 AM OCCUPATIONAL SAFETY SPECIALIST Legal Sex Female 8:51 PM CDT Gender Identity Female 03/27/2018 11:04 AM OCCUPATIONAL SAFETY SPECIALIST Sexual Orientation Straight 03/27/2018 11 :04 AM OCCUPATIONAL SAFETY SPECIALIST Last Filed Vital Signs Vital Sign Reading Time Taken Comments Blood Pressure 112/62 05/02/2018 1:26 PM OCCUPATIONAL SAFETY SPECIALIST Pulse 78 01/15/2015 10:41 AM CDT Temperature - - Respiratory Rate - - Oxygen Saturation - - Inhaled Oxygen Concentration - - Weight 65.8 kg (145 lb) 05/02/2018 1:26 PM OCCUPATIONAL SAFETY SPECIALIST Height 165.1 cm (5' 5) 05/02/2018 1:26 PM OCCUPATIONAL SAFETY SPECIALIST Body Mass Index 24.13 05/02/2018 1:26 PM OCCUPATIONAL SAFETY SPECIALIST Plan of Treatment Health Maintenance Due Date Last Done Comments Cervical Cancer Screening Pap Smear (Age 30 to 64) Every 3 Years 1991 Annual Physical 1994 Hepatitis C 2009 Cervical Cancer Screening Pap with HPV Testing (Age 30 to 64) Every 5 Years 2021 Cervical Cancer Screening with HPV 2021 DTaP, Tdap and Td Vaccines (7 - Td or Tdap) 12/13/2021 12/14/2011, 12/21/2004, 05/31/1995, Additional history exists COVID-19 Vaccine (2023- season) 2024 Hepatitis B Vaccines Completed 05/21/1997, 11/05/1996, 10/05/1996 Meningococcal Vaccine Aged Out 11/29/2005 No zachary anibal eligible based on patient's age to complete this topic HPV Vaccines Completed 09/14/2007, 04/15, 01/31/2007 Meningococcal B Vaccine Aged Out No l onger eligible based on patient's age to complete this topic Pneumococcal Vaccine: Pediatrics (0 to 5 Years) and At-Risk Patients (6 to 49 Years) Aged Out No longer eligible based on patient's age to complete this topic RSV Immunizations Under 20 Months Aged Out No longer eligible based on patient's age to complete this topic Insurance Care Teams Party Plan Sales Unit Sales Leader Relationship Specialty Start Date End Date New Referring, Provider PCP - General UNKNOWN PHYSICIAN SPECIALTY 03/13/18
--- OUTSIDE RECORDS SUMMARY | 2024-12-14 05:32 | XMS_ITS | Encounter Summary ---
Author Organization [facility] Address [address] [place] [id number] Care Team Providers Care Payroll Clerk Name Role Phone Carolina Vargas MD Primary Care Provider Unavailable New Referring, Provider Primary Care Provider Un available Encounter Details Date Type Department Care Team (Late st Contact Info) Description 03/29/2016 Abstract [facility] CONVERSION [address] [place] [address] Carolina Vargas MD Social History Tobacco Use Types Packs/Day Years Used Date Smoking Tobacco: Never Assessed Comments Unknown Sex and Gender Information Value Date Recorded Sex Assigned at Female 03/27/2018 11:04 AM HEDGE FUND PRINCIPAL Legal Sex Female 8:51 PM CDT Gender Identity Female 03/27/2018 11:04 AM HEDGE FUND PRINCIPAL Sexual Orientation Straight 03/27/2018 11 :04 AM HEDGE FUND PRINCIPAL documented as of this encounter Plan of Treatment Not on file documented as of this encounter Visit Diagnoses Not on filedocumented in this encounter Care Teams Payroll Clerk Relationship Specialty Start Date End Date Carolina Vargas MD PCP - General 10/30/15 07/27/17 New Referring, Provider PCP - General UNKNOWN PHYSICIAN SPECIALTY 03/13/18 documented as of this encounter
--- OUTSIDE RECORDS SUMMARY | 2024-12-14 05:32 | XMS_ITS | Clinical Summary ---
Author Organization [facility] Address [address] [place] [address] Care Team Providers Care Head Field Hockey Coach Name Role Phone Unavailable Primary Care Provider Unavailabl e Source Comments [facility],non-owned Affiliates and Associated Physician Practices is amultiple site organization consisting of ambulatory clinics and hospital sitesin [place], [place], [place] and [place]. This disclosure is being madepursuant to the Care Everywhere program and may not contain all information available regarding this patient. Last updated 18.[facility] Allergies No known active allergies Active Problems [...] on file Legal Sex Female 9:51 AM MANAGER ELECTRONIC Gender Identity Not on file Sexual Orientation [...] Phone Billing Address Personal/Family Self 1990 [address]
--- OUTSIDE RECORDS SUMMARY | 2024-12-14 05:32 | XMS_ITS | Encounter Summary ---
Author Organization [facility] Address [address] [place] [address] Care Team Providers Care Restaurant Kitchen And Service Manager Name Role Phone Carolina Vargas MD Primary Care Provider Unavailable New Referring, Provider Primary Care Provider Un available Encounter Details Date Type Department Care Team (Late st Contact Info) Description 03/01/[address] [facility] CONVERSION [address] [facility] [address] Carolina Vargas MD Social History Tobacco Use Types Packs/Day Years Used Date Smoking Tobacco: Never Assessed Comments Unknown Sex and Gender Information Value Date Recorded Sex Assigned at Female 03/27/2018 11:04 AM MANAGER OF RADIOLOGY Legal Sex Female 8:51 PM CDT Gender Identity Female 03/27/2018 11:04 AM MANAGER OF RADIOLOGY Sexual Orientation Straight 03/27/2018 11 :04 AM MANAGER OF RADIOLOGY documented as of this encounter Plan of Treatment Not on file documented as of this encounter Visit Diagnoses Not on filedocumented in this encounter Care Teams Restaurant Kitchen And Service Manager Relationship Specialty Start Date End Date Carolina Vargas MD PCP - General 10/30/15 07/27/17 New Referring, Provider PCP - General UNKNOWN PHYSICIAN SPECIALTY 03/13/18 documented as of this encounter
--- OUTSIDE RECORDS SUMMARY | 2024-12-14 05:32 | XMS_ITS | Patient Health Record ---
Author Organization [facility] Address [address] [place], [place] [id number] Care Team Providers Care Sheet Rock Layer Name Role Phone Angi Lester Unavailable Unavailable Allergies No Known Allergies Reason For Referral No Information Plan Of Treatment No Information Insurance Providers Payer Name Payer Address Payer Phone Subscriber Number Group Number Insured Name Patient Relationship to Insured Coverage Start Date Coverage End Date [employer] [address] [place] [address] [id number] KAMALJIT RUCKER Natural Child - Insured has Financial Responsibility Medical (General) History Surgical History Surgery Date(Month/Year) section Foot Surgery
[2024-12-14] MEDS: LACTATED RINGERS 1,000 ML 125 ML IV CONT ×2 (05:58→08:05)
[2024-12-14] MEDS: ACETAMINOPHEN 500 MG TABLET 1000 MG PO ×3 (05:59→21:16)
--- NOTE | 2024-12-14 06:24 | LDADM ---
This patient, Zo Rucker, was admitted to Labor/Delivery/Recovery 120 on 12/14/24 at 05:24. Plans for labor, pain management and were discussed with patient. Patient/family oriented to hospital policies and general routines including ID bracelet, bed and alarms, visiting hours, pain management, procedures, bathroom and other care routines, personal items, smoking policy, room service/diet and guest tray routines, security routines, and visiting hours. Patient/Family are encouraged to report perceived risks to care and to ask questions if they do not understand what they are told or what they should do. See [facility] for further documentation.
--- NOTE | 2024-12-14 06:28 | WPDHPUPDATE1 ---
History and Physical Update Update Date/Time: 12/14/24 06:28 History and Physical has been reviewed, including an updated exam of the patient. There are NO changes in the patient's condition. Risks, benefits, and alternatives have been discussed and questions answered. Patient agrees to proceed with procedure.
--- NOTE | 2024-12-14 08:05 | P.PNAN_ITS ---
Anes - Initial Pre Proc Eval Procedure: Operation Date: 12/14/24 07:30 Proposed Procedures p Repeat Section - Deandre Biggs MD Date/Time: 12/14/24 08:05 Surgeon: Deandre Biggs MD Pre Op Diagnosis: Repeat Patient Data Age: 34 Gender: F Height: 1.65 m Weight: 90 kg Last Vital Signs Pulse Ox 99 12/14/24 07:53 Allergies Allergy/AdvReac Type Severity Reaction Status Date / Time No Known Allergies Allergy Verified 11/28/24 08:28 Home Medications ?Medication ?Instructions ?Recorded ?Confirmed ?Type prenat.vits,joselyn,enz-[id number] 1 tablet PO DAILY 11/12/20 11/19/24 History hydrocodone 5 mg-acetaminophen 325 1 tablet PO Q4H PRN pain #20 tabs 12/14/24 Rx mg tablet Patient hx anesthesia problems: none Family hx anesthesia problems: none Results Review: All pre-operative results and documents have been reviewed as part of the pre- operative evaluation. PMFSH Past Medical History Medical History Yellow skin Migraine Family History Family History Unknown No problems noted. Other No pertinent family history Social History Social History Smoking status: Never smoker Second hand tobacco smoke exposure: No Alcohol intake: never Substance use: never Substance use type: does not use Lack of Transportation: No Lack of Food: Never True Current Housing: I Have Housing Concerned About Future Housing: No Difficulty Paying Gas/Electric Bills: No Difficulty Paying for Meds: No Currently Unemployed: No Education: Associate Degree Difficulty w/ Childcare or Family Care: No Spiritual care concerns: No Anes - Eval Final PreProcedure Day of Procedure 12/14/24 08:05 Patient weight: obese Heart: regular rate and rhythm Lungs: clear to auscultation Airway: Mallampati scale class II Neurological: alert and oriented Last oral intake: >/= 8 hours ASA classification: II Emergent: no Anesthetic plan: proceed Anesthesia type and monitoring: regional spinal and standard monitoring Results Review: All pre-operative results and documents have been reviewed as part of the pre- operative evaluation. Informed Consent: The patient's anesthetic plan and its attendant risks and benefits were discussed with the patient/family/POA. Questions were solicited and answers provided to the satisfaction of the patient/family/POA.
[2024-12-14] MEDS: ONDANSETRON INJ 4 MG/2 ML VIAL IV PUSH (08:07)
[2024-12-14] MEDS: FAMOTIDINE 20 MG/2 ML VIAL IV PUSH (08:07)
--- NOTE | 2024-12-14 09:01 | P.PCNOB_ITS ---
OB - Delivery Note Procedure Delivery date: 12/14/24 Pre-op diagnosis: Previous Delivery Post-op Diagnosis: Same Induction method: None Delivery monitor: External FHT Prior to decision for section, ACOG/SMFM labor guidelines were considered and discussed with the patient and staff. Decision made to proceed with the section.: Yes Procedure Performed: Repeat Surgeon: Deandre Biggs MD Anesthesia type: Spinal Description of Procedure/Findings: Patient is prepped draped sterile fashion placed in the supine position. Excellent anesthetic Pfannenstiel fashion progressed to fascia. Fascia was incised midline carried in upward fashion. Muscles sharply dissected. Parietal peritoneum a by Daniela clamps and by sharp dissection carried superiorly and inferiorly to the. Bladder blade placed. Bladder flap. Bladder blade returned. A low transverse incision made in the head delivered AGNIESZKA position anterior posterior shoulder delivered spontaneously. Cord clamped x2 and cut infant passed off the table given Apgars of 8 [id number] 9 [id number]. Cord blood was drawn. Placenta delivered intact manually. Uterus delivered on the abdomen wrapped in moist towel. After assuring no membranes or debris remained in the uterus, uterus was closed with continuous running 0 Vicryl from lateral edge to lateral edge. This followed by 2nd imbricating running locking 0 Vicryl from lateral edge to lateral edge hemostasis was assured. Ovaries and tubes within normal limits in the hysterotomy incision appeared hemostatic. Uterus returned to the abdomen. Laps removed and accounted hysterotomy incision inspected 1 last time noted be hemostatic. The fascia closed with continuous running 0 Vicryl from lateral edge to lateral edge. Irrigation subcutaneous layer the skin closed with 4 Monocryl glue. QBL was 340cc. All sponge, needle, instrument counts were correct. There were no immediate complications noted Specimen: No Estimated Blood Loss: 340 Drains: No Packing: No Pathology: None sent Complications: No immediate complications Condition: Stable Disposition: PACU [place] Baby Date of : 12/14/24 Time of : 08:30 Gestational Age by Date: 39 gender: Male presentation: vertex position: Right Occiput Anterior Placenta delivery description: Manual Removal Cord Vessel Description: 3 Vessels score one minute: 8 score five minutes: 9
--- NOTE | 2024-12-14 09:04 | PM.DS ---
DS: Admitting Diagnosis Discharge Date 12/16/2024 Admitting Diagnosis Term previous section DS: Discharge Diagnosis Discharge Diagnosis (1) Term : Code(s): Z34.90 - Encounter for supervision of normal , unspecified, unspecified trimester Status: Acute (2) Previous section: Code(s): Z98.891 - History of uterine scar from previous surgery Status: Acute DS: Summary Hospital Course Reason for hospitalization: Patient was admitted for repeat low-transverse section on 01/07. Hospital Course: Patient's hospital course unremarkable. She remained afebrile. She was up, voiding without difficulty, eating regular diet, ambulating, generally without. Complaints Time Spent with Patient Time attestation: Total time spent providing and/or coordinating discharge services: Exam Const: General: cooperative, healthy appearing and comfortable Nutritional Appearance: average body habitus Orientation/consciousness: oriented to person, oriented to place and oriented to time Resp: Effort & Inspection: normal respiratory effort Cardio: Rate: regular rate Rhythm: regular rhythm Heart sounds: S1 normal heart sound present and S2 normal heart sound present GI: Inspection: normal to inspection and incision (Wound is clean dry and intact) Discharge Plan Discharge Attending physician on discharge: Deandre Ma Discharging Clinician: Deandre Ma Patient Disposition: Home Activity: may shower, no straining, may drive after 2 weeks and pelvic rest Diet: heart healthy Wound Care Instructions: follow printed instructions Patient Instructions: Antibiotic Form Patient Language: Irish Stand Alone Forms: General Discharge Information Follow-up/Referrals: Deandre Ma MD [Physician] - Discharge Medications: New hydrocodone-acetaminophen 5-325 mg tablet 1 tablet PO Q4H PRN (Reason: pain) Qty: 20 0RF Continued prenat.vits,joselyn,[id number] Tablet 1 tablet PO DAILY Date of admission: 12/14/24 05:24 Primary Care Provider: Angi Lester Admitting Provider: Deandre Ma Attending physician on admission: Deandre Ma Condition: Stable
[2024-12-14] MEDS: MORPHINE SULFATE INJ (*CRX) 10 MG/ML AMP 3 MG IV PUSH ×2 (09:23→10:47)
[2024-12-14] MEDS: OXYTOCIN 30 UNITS/NS 500 ML 30 UNITS/500 ML BAG 125 UNITS IV CONT (10:39)
--- NOTE | 2024-12-14 11:40 | PC.NURSE ---
Patient transferred to post room #278 via stretcher. Support person present. Oriented to unit, room, information board, rooming in, admission packet and security measures. Patient verbalizes understanding.
[2024-12-14] MEDS: DEXTROSE 5%/0.45% SOD CHL 1,000 ML 125 ML IV CONT (15:15)
[2024-12-14] MEDS: SIMETHICONE 80 MG TAB.CHEW PO (15:21)
[2024-12-14] MEDS: DOCUSATE SODIUM 100 MG CAPSULE PO (15:21)
[2024-12-14] MEDS: KETOROLAC 15 MG/ML VIAL (*BKC) IV PUSH ×2 (15:22→21:16)
[2024-12-15] MEDS: KETOROLAC 15 MG/ML VIAL (*BKC) IV PUSH (04:00)
[2024-12-15] MEDS: ACETAMINOPHEN 500 MG TABLET 1000 MG PO ×4 (04:00→23:30)
[2024-12-15 05:11] LABS: Hematocrit 35.9 % (37.0-47.0); Hemoglobin 11.7 g/dL (12.0-15.0); Immature Granulocyte Percent A 0.3 % (0-0.5); Lymphocytes Absolute Auto 1.96 K/mm3 (0.9-3.2); Mean Corpuscular HGB Conc 32.6 g/dl (32-36); Mean Corpuscular Hemoglobin 31.6 pg (26-34); Mean Corpuscular Volume 97.0 fl (80-100); Nucleated Red Blood Cells Absolute Auto 0.000 K/mm3 (0.0-0.012); Nucleated Red Blood Cells Perc 0.0 % (0.0-0.2); Platelet Count Result 259 k/mm3 (150-375); Red Blood Count 3.70 M/mm3 (4.2-5.4); White Blood Count 11.6 K/mm3 (4.5-10.0)
[2024-12-15] MEDS: MULTIVIT/MIN/PREN/FOL AC/IRON TABLET 1 TAB PO (08:01)
[2024-12-15] MEDS: SIMETHICONE 80 MG TAB.CHEW PO ×3 (08:01→18:00)
[2024-12-15] MEDS: DOCUSATE SODIUM 100 MG CAPSULE PO ×2 (08:01→18:00)
[2024-12-15] MEDS: LIDOCAINE 5% PATCH 1 PATCH TRANSDERM (08:02)
[2024-12-15 08:15] VITALS: BP 117/83; PULSE 70; RESP 18; TEMP 36.7; O2SAT 100
--- NOTE | 2024-12-15 10:34 | PM.OBPNVD ---
OB - PN: Subj Subjective Date/time seen: 12/15/24 10:34 Patient comments: no complaints and pain well controlled baby status: doing well OB - PN: Obj Data Labs 12/15/24 04:05 Labs: Laboratory Results - last 24 hr 12/15/24 04:05 WBC 11.6 H RBC 3.70 L Hgb 11.7 L Hct 35.9 L MCV 97.0 MCH 31.6 MCHC 32.6 RDW 13.3 Plt Count 259 MPV 11.0 H Immature Gran % (Auto) 0.3 Neut % (Auto) 74.7 H Lymph % (Auto) 16.[address] [place] % (Auto) 6.4 Eos % (Auto) 1.2 Baso % (Auto) 0.5 Lymph # (Auto) 1.96 [place] # (Auto) 0.7 H Eos # (Auto) 0.1 Baso # (Auto) 0.1 Abs Immat Gran (auto) 0.04 H Absolute Neuts (auto) 8.7 H Absolute Nucleated RBC 0.000 Nucleated RBC % 0.0 OB - PN A/P Plan day: 1 Plan: routine care Time Spent With Patient Time: Total time spent is greater than 50% in coordination of care (as documented) at patient's floor/unit and/or counseling patient: Exam Narrative: inc c/d/i : Bimanual exam- vagina & uterus: other (Uterus firm, nt @U)
--- NOTE | 2024-12-15 11:34 | WPDANLDPN2 ---
Anes-Prog Note L&D Date/Time: 12/15/24 11:34 Comfortable throughout: section Neuraxial method: spinal Epidural/Spinal procedure site: clean & non-tender Neuro status: Neuro function grossly intact. Cardiovascular status: normal Respiratory status: normal Airway patency: baseline Mental status: baseline Post-Op hydration status: normal Vital Signs: Last Vital Signs Temp 98.0 F 12/15/24 08:15 Pulse 70 12/15/24 08:15 Resp 18 12/15/24 08:15 BP 117/83 12/15/24 08:15 Pulse Ox 100 12/15/24 08:15 O2 Del Method Room Air 12/14/24 19:47 Pain score (VAS): 0 I/O: Intake & Output 12/14/24 12/15/24 12/15/24 23:59 07:59 15:59 Intake Total 500 Output Total 3750 200 Balance -3250 -200 Post-procedural complaints: pruritis mild, no treatment Patient feedback: Patient satisfied with anesthetic care.
--- NOTE | 2024-12-15 11:35 | WPDANLDNPN2 ---
Anes-Prog Note L&D-Neuraxial Date/Time: 12/15/24 11:35 Neuraxial medications: intrathecal PF morphine Opiod-related complaints: pruritis mild, no treatment Patient feedback: Patient satisfied with post-operative pain management.
[2024-12-15] MEDS: IBUPROFEN 600 MG TABLET PO ×3 (12:07→23:30)
[2024-12-15] MEDS: LANOLIN (LANSINOH) 7.5 GM CREAM 1 APPLIC TOPICAL (12:08)
[2024-12-15 18:58] VITALS: BP 112/79; PULSE 67; RESP 16; TEMP 36.4; O2SAT 99
[2024-12-16] MEDS: IBUPROFEN 600 MG TABLET PO (05:07)
[2024-12-16] MEDS: ACETAMINOPHEN 500 MG TABLET 1000 MG PO (05:07)
--- NOTE | 2024-12-16 08:19 | P.PNOB_ITS ---
OB - PN: Subj Subjective Date/time seen: 12/16/24 08:19 Patient comments: no complaints and pain well controlled (on just motrin and tylenol) baby status: doing well OB - PN: Obj Data Labs 12/15/24 04:05 OB - PN A/P Plan day: 2 Plan: routine care and discharge home Time Spent With Patient Time: Total time spent is greater than 50% in coordination of care (as documented) at patient's floor/unit and/or counseling patient: Exam 2 Narrative: inc c/d/i : Bimanual exam- vagina & uterus: other (Uterus firm, nt @U)
[2024-12-16 08:45] VITALS: BP 119/73; PULSE 68; RESP 16; TEMP 36.6; O2SAT 100
[2024-12-16] MEDS: DOCUSATE SODIUM 100 MG CAPSULE PO (09:04)
[2024-12-16] MEDS: MULTIVIT/MIN/PREN/FOL AC/IRON TABLET 1 TAB PO (09:04)
[2024-12-16] MEDS: SIMETHICONE 80 MG TAB.CHEW PO (09:04)
[2024-12-18 11:28] VITALS: BP 119/78; PULSE 78; RESP 18; TEMP 36.8; O2SAT 100
== END 2024-12-16 12:25 | disposition home or self-care (01) | DRG 788 ==
LOC: ANHOB2 12-18 11:50 → ANHLDR 12-18 11:50
PROVIDERS: Admitting Provider Obstetrics & Gynecology; PCP Family Medicine; Visit Provider Obstetrics & Gynecology Gynecology
PROC: 10D00Z1 Extraction of Products of Conception, Low, Open Approach (ICD-10-PCS; CPT 59514; principal; 2024-12-14 07:30)
DX: O34.211 Maternal care for low transverse scar from previous cesarean delivery (principal); Z37.0 Single live birth; Z3A.39 39 weeks gestation of pregnancy
CPT/HCPCS: 36415; 85025; A9270; J1885; J2270; J2274; J2405; J2590; J7120